=== PATIENT | male | born 1995 | race African-American/Black ===

== ENCOUNTER 2017-03-05 00:59 | Emergency (ER) | payer OTHER ==
[~2017-03-05] VITALS: Ht 177.8 cm; Wt 90.9 kg
[2017-03-05 01:00] VITALS: BP 197/105
== END 2017-03-05 04:30 | disposition left against medical advice (07) ==
LOC: M ED 00:59
DX: Z53.21 Procedure and treatment not carried out due to patient leaving prior to being seen by health care provider (principal)